=== PATIENT | female | born 1995 | race Caucasian/White ===

== ENCOUNTER 2024-11-14 13:10 | Outpatient (AMB) | payer OTHER, SELFPAY ==
--- NOTE | 2024-11-14 13:13 | MHC.PC.OV ---
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 Request Intake Note: New patient visit Insole Filler Required: No Allergies No Known Allergies Allergy (Verified 11/14/24 13:13) Medication List - Last Reconciled 11/14/24 by Ngoc Cifuentes PA-C dextroamphetamine-amphetamine 15 mg ER 1 cap PO QAM norethindrone-e.estradiol-iron 1 mg-20 mcg (21)/75 mg (7) (03/11 ()) 1 tab PO DAILY Tobacco use date assessed: 11/14/24 Dental Screening Dental Screen Date: 11/14/24 Did you have a dental visit in the last 12 months?: Yes Did you have a dental problem in the last 6 months where you did not have access to dental care?: No Was dental information given to patient?: Patient has dentist HPI 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 Pysch: ADD well-controlled with Adderall 15 mg. Has taper down from 30 because she eventually wants to get off of the so she can in the future talk about family planning. 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 1. Little interest or pleasure in doing things: not at all 2. Feeling down, depressed, or hopeless: not at all 3. Trouble falling or staying asleep, or sleeping too much: not at all 4. Feeling tired or having little energy: not at all 5. Poor appetite or overeating: not at all 6. Feeling bad about yourself - or that you are a failure or have let yourself or your family down: not at all 7. Trouble concentrating on things, such as reading the newspaper or watching television: not at all 8. Moving or speaking so slowly that other people could have noticed. Or the opposite - being so fidgety or restless that you have been moving around a lot more than usual: not at all 9. Thoughts that you would be better off or of hurting yourself in some way: not at all Total score: 0 Depression Screening Interpretation: Negative Depression Screening Done: Yes 96027 - PHQ-9 Billing: Yes Source: Developed by Drs. Aneesh Singh, Breana Collazo, Luis E Alonzo and colleagues, with an educational segun from [employer]. Thrive Questionnaire Date Thrive assessed: 11/10/24 I am a: Patient What is your living situation today?: I have a steady place to live Within the past 12 months, did the food you bought not last and you didn't have the money to get more?: Never true Within the past 12 months, did you worry whether your food would run out before you got money to buy more?: Never true Do you have trouble paying for medicines?: No Do you have trouble getting transportation to medical appointments?: No Do you have trouble paying your heating and electricity bill?: No Do you have trouble taking care of your child, family member or friend?: No Do you have trouble with day-to-day activities such as bathing, preparing meals, shopping, managing finances, etc.?: No Are you currently unemployed and looking for a job?: No Are you interested in more education?: No Please select the resources that you would like help with: None Currently or been in a relationship where the following occur: No concerns reported THRIVE Score: 0 AUDIT C Alcohol Use Questionnaire (AUDIT-C) 1. How often do you have a drink containing alcohol?: Monthly or less 2. How many drinks containing alcohol do you have on a typical day when you are drinking?: 1 or 2 3. How often do you have six or more drinks on one occasion?: Never Total Score: 1 Score Reviewed/Action Taken: Yes FOREIGN-7 AMB Questionnaire FOREIGN-7 Feeling nervous, anxious, or on edge: 0 = Not at all Not being able to stop or control worryin = Not at all Worrying too much about different things: 0 = Not at all Trouble relaxin = Not at all Being so restless that it is hard to sit still: 0 = Not at all Becoming easily annoyed or irritable: 1 = Several days Feeling afraid as if something awful might happen: 0 = Not at all Total FOREIGN-7 score (0-4 normal; 5-9 mild; 10-14 moderate; 15-21 severe): 1 Source: Developed by Drs. Aneesh Singh, Breana Collazo, Luis E Alonzo and colleagues, with an educational segun from [employer]. FOREIGN-7 Assessment Billing FOREIGN-7 Assessment Tool: FOREIGN-7 Assessment 67191 Physical exam (Primary Care) Vital Signs: Last Vital Signs Temp 98 F 11/14/24 13:15 Pulse 75 11/14/24 13:15 Resp 12 11/14/24 13:15 BP 124/88 11/14/24 13:15 BMI result Body Mass Index 23.0 Tobacco/Smoking Status: Tobacco use Status Tobacco use date assessed 11/14/24 11/14/24 13:18 Patient Tobacco Use Status Never used Tobacco 11/14/24 13:18 e-Cigarette/Vaping Use Never Used 11/14/24 13:18 PHQ-9: PHQ-9 Score PHQ-9: Total score 0 11/14/24 13:13 Depression Screening Interpretation: Negative Thrive Assessment: Date of Thrive Assessment Date Thrive assessed 11/10/24 11/14/24 13:13 Currently or been in a relationship where the following occur: No concerns reported Const Orientation/consciousness: patient oriented x3 HENMT Ears: hearing grossly normal bilaterally General nose exam: No nasal polyps present Face and sinus: Yes sinuses nontender Mouth: Normal oral and palatal mucosa present Eyes Pupils: Equal, round and reactive pupils present EOM: EOMs intact bilaterally Neck Neck: Yes full ROM and Yes no lymphadenopathy Thyroid: Thyroid normal Lymphatic: no lymphadenopathy noted Chest Chest palpation & inspection: normal inspection of the chest Resp Auscultation: clear to auscultation bilaterally Cardio Rate: regular rate Rhythm: regular rhythm Heart sounds: S1 normal heart sound present and S2 normal heart sound present Peripheral pulses: Peripheral pulses 2+ throughout GI Other: Soft, nontender Inspection: Yes normal to inspection Palpation (GI): Soft to palpation and Other GI palpation findings present (nontender, no cva tenderness) Auscultation: normoactive bowel sounds Rectal Exam - Female: deferred General: Yes no CVA tenderness Back/Spine/Pelvis Other: Nontender Back: no CVA tenderness Skin General skin exam: no rashes or lesions noted Neuro General: patient oriented x3, gait normal and no focal motor deficits Cranial nerves: Yes Equal, round and reactive pupils present Motor exam (neuro): 5/5 motor strength present throughout Sensory Exam: double simultaneous stimulation for sensation normal Coordination: [id number] test normal and Romberg test negative Extrem General: Yes normal to inspection and Yes full ROM Psych Affect: normal affect Attitude: cooperative Thought process: Normal thought process present Thought content: Normal thought content present Insight: Good insight present (Psych) Judgement: Good judgement present (Psych) Coding Level of Care Code Est Pt Prev Care 18-39y(72248) Diagnoses Routine general medical examination at a health care facility Z00.00 ADD (attention deficit disorder) F98.8 Additional Codes PHQ-9 - 62588 - PHQ-9 Billing: Yes ([id number]) FOREIGN-7 Assessment Billing - FOREIGN-7 Assessment Tool: FOREIGN-7 Assessment 19719 ([id number]) Assessment & Plan Assessment & Plan (1) Routine general medical examination at a health care facility: Code(s): Z00.00 - Encounter for general adult medical examination without abnormal findings Plan: reviewed labs ordered (2) ADD (attention deficit disorder): Code(s): F98.8 - Other specified behavioral and emotional disorders with onset usually occurring in childhood and adolescence Category: Medical Plan: Controlled substance contract signed today Orders: Orders Complete Blood Count Auto Diff Today F98.8 - Other specified behavioral and emotional disorders with onset usually occurring in childhood and adolescence, Z01.812 - Encounter for preprocedural laboratory examination, Z13.220 - Encounter for screening for lipoid disorders Lipid Panel Today F98.8 - Other specified behavioral and emotional disorders with onset usually occurring in childhood and adolescence, Z01.812 - Encounter for preprocedural laboratory examination, Z13.220 - Encounter for screening for lipoid disorders Microalbumin, Random (w Creat) Today F98.8 - Other specified behavioral and emotional disorders with onset usually occurring in childhood and adolescence, Z01.812 - Encounter for preprocedural laboratory examination, Z13.220 - Encounter for screening for lipoid disorders Comprehensive [place]. Panel Fast Today F98.8 - Other specified behavioral and emotional disorders with onset usually occurring in childhood and adolescence, Z01.812 - Encounter for preprocedural laboratory examination, Z13.220 - Encounter for screening for lipoid disorders TSH reflex Free T4 Today F98.8 - Other specified behavioral and emotional disorders with onset usually occurring in childhood and adolescence, Z01.812 - Encounter for preprocedural laboratory examination, Z13.220 - Encounter for screening for lipoid disorders UA CC w/rflx Micro + Cult Today F98.8 - Other specified behavioral and emotional disorders with onset usually occurring in childhood and adolescence, R30.0 - Dysuria, Z01.812 - Encounter for preprocedural laboratory examination, Z13.220 - Encounter for screening for lipoid disorders
[2024-11-14 13:15] VITALS: BP 124/88; PULSE 75; RESP 12; TEMP 36.6; BMI 23.0
--- OUTSIDE RECORDS SUMMARY | 2024-11-14 17:51 | XMS_ITS | Encounter Summary ---
Author Organization [facility] Address [address] [facility] [address] [place] [address] Phone Care Team Providers Care Tractor Operator Name Role Phone Mary Ann Pereyra MD Primary Care Provider Encounter Details Date Type Department Care Team (Late st Contact Info) Description 03/21/2018 Procedure Pass [facility] DEPT [address] [place] [id number] Social History Tobacco Use Types Packs/Day Years Used Date Smoking Tobacco: Never Smokeless Tobacco: Never Alcohol Use Standard Drinks/Week Comments Yes 0 (1 standard drink = 0.6 oz pur e alcohol) socially Comments Unknown Sex and Gender Information Value Date Recorded Sex Assigned at Not on file Legal Sex Female 11:42 AM EST Gender Identity Not on file Sexual Orientation Not on file documented as of this encounter Plan of Treatment Not on file documented as of this encounter Visit Diagnoses Not on filedocumented in this encounter Care Teams Tractor Operator Relationship Specialty Start Date End Date Mary Ann Pereyra MD PCP - General Internal Medicine 07/19/17 documented as of this encounter Additional Source Comments The information contained in this document represents components of the legal health record. It is not the complete legal health record.[facility]
--- OUTSIDE RECORDS SUMMARY | 2024-11-14 17:51 | XMS_ITS | Clinical Summary ---
Author Organization [facility] Address [address] [place] [phone] Phone Care Team Providers Care Bus Greaser Name Role Phone Mary Ann Pereyra MD Primary Care Provider Allergies No known active allergies Medications dextroamphetamin e-amphetamine (ADDERALL) 10 mg Tab tablet Take 30 mg by mouth daily. Active Active Problems No known active problems Family History Medical History Relation Comments Hypertension Father Relation Status Comments Father Social History Tobacco Use Types Packs/Day Years Used Date Smoking Tobacco: Never Smokeless Tobacco: Never Alcohol Use Standard Drinks/Week Comments Yes 0 (1 standard drink = 0.6 oz pur e alcohol) socially Education Answer Date Recorded Are you interested in more education? Not on althea e 06/17/2022 Are you concerned about learning? Not on file 06/17/2022 No 06/17/2022 No 06/17/2022 Digital Access Answer Date Recorded No 07/16/2022 No 07/16/2022 No 07/16/2022 Reliable internet access at home? Not on file 07/16/2022 Device with a working camera? Not on file Comments Unknown Sex and Gender Information Value Date Recorded Sex Assigned at Not on file Legal Sex Female 11:42 AM EST Gender Identity Not on file Sexual Orientation Not on file Last Filed Vital Signs Vital Sign Reading Time Taken Comments Blood Pressure 114/86 03/21/2018 2:00 PM EST Pulse 85 03/21/2018 2:00 PM EST Temperature 36.7 C (98 F) 03/21/2018 11:21 AM EST Respiratory Rate 18 03/21/2018 2:00 PM EST Oxygen Saturation 99% 03/21/2018 1:15 PM EST Inhaled Oxygen Concentration - - Weight 49.9 kg (110 lb) 03/21/2018 8:17 AM EST Height 152.4 cm (5') 03/21/2018 8:17 AM EST Body Mass Index 21.48 03/21/2018 8:17 AM EST Plan of Treatment Health Maintenance Due Date Last Done Comments DEPRESSION SCREENING 2008 HEPATITIS C SCREENING 2014 HIV ONE-TIME SCREENING (18-65 YEARS) 2014 PAP SMEAR 2017 SMOKING STATUS SCREENING (Once After 26 Yrs) 2022 Adult Td,Tdap Booster 08/09/2023 08/08/2013, 009 INFLUENZA VACCINE (#1) 2024 , 01/18/2019, 01/14/2018, Additional history exists COVID-19 VACCINE (2024- season) 2024 04/01/2020, 03/06/2020 HIB VACCINES Completed 10/08/1997, 09/20, 01/06/1997, Additional history exists PNEUMOCOCCAL VACCINES (0-49 years) Aged Out 09/27/1999 No longer eligible based on patient's age to complete this topic MENINGOCOCCAL VACCINES (ACWY) Completed 05/03/2013, 08/15/2008 HEPATITIS A VACCINES Aged Out No long er eligible based on patient's age to complete this topic MENINGOCOCCAL VACCINES (B) Aged Out N o longer eligible based on patient's age to complete this topic Medical Devices Implanted Type Area Band Presser Device Identifier Shelf Expiration Date Model / Serial / Lot Screws In [place] Insurance [facility] PPO PHCS S S S S S S Advance Directives For more information, please contact: [phone] (9AM - 5PM [facility], Monday-Monday) Documents on File Type Date Recorded Patient Clinical Associate Expl anation Healthcare Proxy 03/22/2018 11:33 AM Care Teams Bus Greaser Relationship Specialty Start Date End Date Mary Ann Pereyra MD PCP - General Internal Medicine 07/19/17 Additional Source Comments The information contained in this document represents components of the legal health record. It is not the complete legal health record.[facility]
--- OUTSIDE RECORDS SUMMARY | 2024-11-14 17:51 | XMS_ITS | Clinical Summary ---
Author Organization [facility] Address [address] [place] [phone] Phone Care Team Providers Care Customer Advisor Name Role Phone Lashaun Castelan MD Primary Care Provider Unavailabl e Immunizations Immunization Administration Dates Next Due DTaP 08/26/2001, 8,01/06/1997,10/31,1996 Hep B, ped/adol 03/19/1997,1996,1996 Hib (PRP-T) 10/08/1997, 7,1996,08/26 IPV 07/27/2001, 8,1996,08/26 MMR 07/03/2000,07/09/1997 Meningococcal Conj (Menactra) MCV4P 05/03/2013,0 08/15/2008 Pneumococcal Conjugate 09/27/1999 Td (adult) (Tenivac), 5 Lf t etanus toxoid, PF, adsorbed 08/08/2013 Tdap 08/15/2008 Varicella 01/17/2007,07/09/1997 Family History Relation Name Status Comments Father Alive healthy age: 50 Maternal Grandfather Alive hyperli pidemia Maternal Grandmother Alive hyperte nsion, glucoma Mother Alive healthy age: 55 Other Alive Siblings: healt hy Paternal Grandfather [place], can cer Paternal Grandmother Alive healthy Social History Tobacco Use Types Packs/Day Years Used Date Smoking Tobacco: Never Assessed Comments Unknown Sex and Gender Information Value Date Recorded Sex Assigned at Not on file Legal Sex Female 6:10 PM EDT Gender Identity Not on file Sexual Orientation Not on file Last Filed Vital Signs Vital Sign Reading Time Taken Comments Blood Pressure 118/68 04/09/2015 12:00 AM EST Pulse 107 09/02/2014 12:00 AM EDT Temperature 37 C (98.6 F) 04/09/2015 12:00 AM EST Respiratory Rate - - Oxygen Saturation 100% 09/02/2014 12:00 AM EDT Inhaled Oxygen Concentration - - Weight 50.8 kg (112 lb) 04/09/2015 12:00 AM EST Height 156.2 cm (5' 1.5 ) 04/09/2015 12:00 AM ES T Body Mass Index 20.82 04/09/2015 12:00 AM EST Plan of Treatment Health Maintenance Due Date Last Done Comments HPV Vaccines (1 - 3-dose SCDM series) 06/22/2023 DTaP,Tdap,and Td Vaccines (8 - Td or Tdap) 08/09/2023 08/08/2013, 08/15/2008, 08/26/2001, Additional history exists Influenza Vaccines (#1) 2024 COVID-19 Vaccine ( season) 2024 Hepatitis B Vaccines Completed 03/19/1997, 1996, 1996 HIB Vaccines Completed 10/08/1997, 12/21, 1996, Additional history exists Pneumococcal Vaccine Completed 09/27/1999 MMR Vaccines Completed 07/03/2000, 07/09/1997 IPV Vaccines Completed 07/27/2001, 06/21, 1996, Additional history exists Varicella Vaccines Completed 01/17/2007, 07/09/1997 Meningococcal Vaccine Completed 05/03/2013, 009 Hepatitis A Vaccines Aged Out No long er eligible based on patient's age to complete this topic Men B Vaccine Aged Out No longer elig ible based on patient's age to complete this topic Care Teams Customer Advisor Relationship Specialty Start Date End Date Lashaun Castelan MD PCP - General 08/08/19
--- OUTSIDE RECORDS SUMMARY | 2024-11-14 17:51 | XMS_ITS | Encounter Summary ---
Author Organization [facility] Address [address] [place] [phone] Phone Care Team Providers Care Metal Milling Machine Operator Name Role Phone Lashaun Castelan MD Primary Care Provider Unavailabl e Encounter Details Date Type Department Care Team (Late st Contact Info) Description 07/09/2017 [facility]counter [facility] [address] [id number] Joan Levin MD [address] [place] [address] Social History Tobacco Use Types Packs/Day Years [...] on filedocumented in this encounter Care Teams Metal Milling Machine Operator Relationship Specialty Start Date End Date Lashaun Castelan MD PCP - General 08/08/19 documented as of this encounter
== END 2024-11-14 13:45 | disposition home or self-care (01) ==
LOC: HO.HMCFM 13:11
PROVIDERS: PCP Physician Assistant; Visit Provider Physician Assistant
DX: Z00.00 Encounter for general adult medical examination without abnormal findings (principal); F98.8 Other specified behavioral and emotional disorders with onset usually occurring in childhood and adolescence

== ENCOUNTER 2024-11-14 13:10 | Outpatient (REF) | payer OTHER, SELFPAY ==
[2024-11-14 18:01] LABS: MANUAL DIFF FLAG NO
[2024-11-14 18:10] LABS: Hematocrit 38.9 % (37.0-47.0); Hemoglobin 13.6 g/dl (12.0-16.0); Imm Gran Abs Auto 0.01 X10*3/uL (0.00-0.03); Imm Gran Pct Auto 0.2 % (0.0-0.4); Lymphocytes Absolute Auto 2.2 X10*3/uL (1.2-4.9); Mean Corpuscular HGB Conc 35.0 g/dl (31.0-35.0); Mean Corpuscular Hemoglobin 30.6 pg (27.0-33.0); Mean Corpuscular Volume 87.4 fL (80.0-98.0); NRBC Abs Auto 0.000 X10*3/uL (0.0-0.012); NRBC Pct Auto 0.0 /100WBC (0.0-0.2); Platelet Count 289 X10*3/uL (160-400); Red Blood Count 4.45 X10*6/uL (4.20-5.50); White Blood Count 6.1 X10*3/uL (4.8-10.8)
[2024-11-14 18:43] LABS: Alanine Aminotransferase 20 U/L (0-31); Albumin Level 4.5 g/dL (3.5-5.0); Alkaline Phosphatase 46 U/L (39-117); Anion Gap 12 (12-20); Aspartate Amino Transferase 37 U/L (5-31); Blood Urea Nitrogen 11 mg/dL (9-16); Calcium 9.3 mg/dL (8.4-10.2); Carbon Dioxide 24 mmol/L (22-29); Chloride 108 mmol/L (96-108); Cholesterol 170 mg/dL (<200); Estimated Glomerular Filt Rate > 60; HDL Cholesterol 66 mg/dL (>40); Potassium 3.8 mmol/L (3.3-5.1); Sodium 140 mmol/L (135-145); Total Protein 7.1 g/dL (6.5-8.0); Triglycerides 65 mg/dL (<150)
== END 2024-11-14 13:11 | disposition home or self-care (01) ==
LOC: HO.WFDLDS 13:10
PROVIDERS: PCP Physician Assistant; Visit Provider Physician Assistant
DX: Z01.812 Encounter for preprocedural laboratory examination (principal); Z13.220 Encounter for screening for lipoid disorders; Z00.00 Encounter for general adult medical examination without abnormal findings; F98.8 Other specified behavioral and emotional disorders with onset usually occurring in childhood and adolescence; R30.0 Dysuria; Z79.899 Other long term (current) drug therapy
CPT/HCPCS: 36415; 80053; 80061; 84443; 85025; 96127